=== PATIENT | male | born 1990 | race Caucasian/White ===

== ENCOUNTER 2024-11-24 01:23 | Emergency (ER) | payer BC, SELFPAY ==
[2024-11-24 01:26] VITALS: BP 153/92
[2024-11-24 01:51] LABS: % Eosinophils 5.6 % (0-6); % Immature Granulocytes 0.2 % (0-0.5); % Monocytes 7.7 % (1.7-9.3); % Neutrophils 42.5 % (42.2-75.2); Absolute Basophils 0.1 10^3/uL (0-0.2); Absolute Eosinophils 0.3 10^3/uL (0-0.7); Absolute Lymphocytes 2.5 10^3/uL (1.2-3.4); Absolute Monocytes 0.5 10^3/uL (0.1-0.6); Absolute Neutrophils 2.5 10^3/uL (1.4-6.5); Hematocrit 40.7 % (39.0-52.0); Hemoglobin 14.6 g/dL (13.0-18.0); Mean Corp Hgb Conc. 35.9 g/dL (33.0-37.0); Mean Corpuscular Hgb 31.1 pg (27.0-31.0); Mean Corpuscular Volume 86.8 fL (80.0-94.0); Nucleated Red Blood Cells % 0 % (-); Platelet Count 150 10^3/uL (130-400); Red Blood Cell Count 4.69 10^6/uL (4.70-6.10); Red Cell Dist. Width 12.4 % (11.5-14.5); White Blood Cell Count 5.9 10^3/uL (4.8-10.8)
[2024-11-24 01:58] LABS: ALT (SGPT) 20 U/L (0-50); AST (SGOT) 20 U/L (17-59); Albumin 4.5 g/dl (3.5-5.0); Alkaline Phosphatase 76 U/L (38-126); Blood Urea Nitrogen 9 mg/dl (9-20); Calcium 9.3 mg/dl (8.4-10.2); Carbon Dioxide 26 mmol/L (22-30); Chloride 110 mmol/L (98-107); Glucose 124 mg/dl (70-99); Sodium 143 mmol/L (135-145); Total Bilirubin 0.4 mg/dl (0.2-1.3); Total Protein 6.8 g/dl (6.3-8.2); eGFR > 60.00
[2024-11-24 02:10] LABS: Troponin I < 0.012 ng/ml
[2024-11-24 02:44] VITALS: BP 136/87; BMI 31.8
[2024-11-24 05:29] LABS: Troponin I 0.015 ng/ml
[2024-11-24 05:45] VITALS: BP 124/68
--- NOTE | 2024-11-24 06:10 | ED.GENMED ---
History of Present Illness
General
Chief Complaint: Chest Problem
Source: patient and family (Mother)
Time Seen by Provider: 11/24/24 02:52
Nursing documentation reviewed up to this point in time: agreed with
History of Present Illness
History of Present Illness:
Note:
CHIEF COMPLAINT(S)
Intermittent chest discomfort.
HISTORY OF PRESENT ILLNESS
The patient is a 34-year-old male who presented with concerns of chest discomfort that began around 1 AM. He reports feeling a 'funny sensation' in his chest, describing it as quick, intermittent, and lasting only a second or two each time. The
sensation occurred four to five times over a span of approximately 15 minutes. The patient expresses concern due to a family history of heart issues, specifically mentioning his father, who had a myocardial infarction at age 42 and at
54. He denies any associated symptoms such as sweating, fatigue, weakness, arm pain, or breathing difficulties. The patient describes the sensation as feeling like someone squeezing his chest slightly but notes no tightness or significant
discomfort. He has a history of epilepsy and reported undergoing hip surgery and wisdom teeth extraction, with no ongoing medical issues other than the aforementioned. He has been followed by a front man due to a family history of cardiomyopathy
and familial issues, having been seen most recently by Dr. Chan about two years ago.
PAST MEDICAL HISTORY
- Epilepsy
PAST SURGICAL HISTORY
- Hip surgery
- [place] teeth extraction
FAMILY HISTORY
- Father had myocardial infarction at age 42 and at 54 from heart disease.
PLAN
- Repeat cardiac enzyme test three hours from the initial blood draw.
- If test results are normal, discharge home with a recommendation to follow up with a front man.
DIFFERENTIAL DIAGNOSIS
The Differential Diagnosis includes, in no particular order and is not limited to:
- Atypical angina
- Gastroesophageal reflux disease (GERD)
- Costochondritis
- Anxiety or stress-related chest pain
- Myocardial infarction
- Pericarditis
- Myocarditis
- Musculoskeletal chest pain
- Esophageal spasm
- Pulmonary embolism
EKG
My independent EKG interpretation is:
- Rhythm: Normal-sized
- Heart Rate: 83 bpm
- Intervals: Normal
- [place]: Normal
- Abnormalities: No evidence of acute ischemia
- Comparison: QT interval has improved since the EKG dated September 03, 2021
HEART:
Result Summary
0 points Low Score (0-3 points)
Risk of MACE of 0.9-1.7%.
Inputs:
History -> 0 = Slightly suspicious
Age -> 0 = <45
Risk Factors -> 0 = No known risk factors
Initial Troponin -> 0 = <=ormal limit
EKG -> 0 = Normal
Disposition:
DIAGNOSIS
- R07.89 - Other chest pain
SUMMARY OF ENCOUNTER
The patient is a 35-year-old male who presented to the emergency department with concerns of chest discomfort that began earlier this evening. The patient described the chest discomfort as fleeting and reported experiencing palpitations. He denied
any shortness of breath, fever, chills, nausea, vomiting, or diaphoresis. The patient has a history of epilepsy. He was accompanied by his mother during the visit. Initial workup included cardiac enzyme tests, where the first troponin level was
negative, but the second troponin level showed a slight increase. The plan included repeating the troponin level for further assessment.
PLAN
- Repeat troponin level.
- Follow up with a front man.
INDEPENDENT INTERPRETATION OF TESTS
- My independent interpretation of the troponin test shows a slight elevation in the second sample compared to the first, indicating the need for further monitoring.
FOLLOW-UP INSTRUCTIONS
- The patient is advised to follow up with a front man for further evaluation and management of potential underlying cardiac issues.
MEDICAL DECISION MAKING
Number and Complexity of Problems Addressed: The patient presented with acute concerns regarding chest discomfort accompanied by palpitations, prompting an evaluation for cardiac issues given their increased complexity due to a slight elevation in
troponin.
Data: Diagnostic tests were initiated, and subsequent lab results, including troponin levels, required interpretation and follow-up.
Risk: The possibility of hospitalization was considered due to the slight elevation in troponin levels and family history of cardiac issues, underscoring the need for vigilant monitoring and follow-up care.
Past History
Past History
ED Past Medical History: None, Seizures and Other
ED Past Surgical History: None and Other
Social History
Tobacco: Non-smoker
Living: with family
Employment: Other
Family History
Family History: Other
Review of Systems
Review of Systems
Allergies reviewed?: Yes
All Other Systems: ROS reviewed and negative except as documented in HPI and ROS
Constitutional: Reports no symptoms
EENT: Reports no symptoms
Respiratory: Denies cough or trouble breathing
Cardiac: Reports chest pain and palpitations; Denies diaphoresis or syncope
ABD/GI: Reports no symptoms
: Reports no symptoms
Musculoskeletal: Reports no symptoms
Skin: Reports no symptoms
Neurological: Reports no symptoms
Endocrine: Reports no symptoms
Hematologic/Lymphatic: Reports no symptoms
Psychiatric: Reports no symptoms
Phy Exam
General Physical Exam
General Presentation: well appearing and no apparent distress
General Skin: warm and dry
General Habitus: normal
General Mental: alert
General Hydration: appears well hydrated
ENT Exam
ENT Exam: EOMI, pharynx normal, neck supple and normocephalic
Eye Exam
Eye Exam: PERRL, cornea clear and conjunctiva normal
Cardiovascular Exam
Cardiovascular Exam: regular rate/rhythm, no edema, no murmur and normal peripheral pulses
Pulmonary Exam
Pulmonary Exam: lungs clear, no respiratory distress, no rales, no crackles, no rhonchi, no stridor, no wheezing and no cough
Gastrointestinal Exam
Gastrointestinal Exam: normal bowel sounds, non tender, soft, no organomegaly, no pulsatile mass and non distended
Neurological Exam
Neurological Exam: alert, oriented x3, no motor deficits and speech normal
Musculoskeletal Exam
Musculoskeletal Exam: full ROM and no edema
Skin Exam
Skin Exam: normal color, warm/dry, no rash and no petechia
Psychiatric Exam
Psychiatric Exam: normal mood/affect
Course
Orders/Labs/Results
Orders:
Orders
11/24/24 01:26
Electrocardiogram (*1) Urgent
Reason for Study: Chest Pain
EKG- Treatment ONCE
11/24/24 01:36
Complete Blood Count/With Diff Urgent
Comprehensive Metabolic Panel Urgent
Troponin I Urgent
11/24/24 03:06
EKG- Treatment ONCE
11/24/24 04:30
EKG [Electrocardiogram (*1)] Urgent
Reason for Study: Chest Pain
11/24/24 04:49
Troponin I Urgent
11/24/24 07:01
Electrocardiogram (*1) Urgent
Reason for Study: Chest Pain
EKG- Treatment ONCE
11/24/24 07:30
Troponin I Urgent
Abnormal Lab Results
11/24/24
01:36
RBC 4.69 L 10^6/uL
(4.70-6.10)
MCH 31.1 H pg
(27.0-31.0)
MPV 12.0 H fL
(7.4-10.4)
Chloride 110 H mmol/L
(98-107)
Glucose 124 H mg/dl
(70-99)
11/24/24 01:36
11/24/24 01:36
Vital Signs
Initial and Last Documented VS:
Initial Vital Signs
Temp Pulse Resp BP Pulse Ox
98.2 F 89 18 153/92 100
11/24/24 01:26 11/24/24 01:26 11/24/24 01:26 11/24/24 01:26 11/24/24 01:26
Last Documented Vital Signs
Temp Pulse Resp BP Pulse Ox
98.2 F 80 14 124/68 100
11/24/24 01:26 11/24/24 05:45 11/24/24 05:45 11/24/24 05:45 11/24/24 05:45
*Pulse Oximetry
Patient hypoxic: no
Comment: 100 percent on room air
*EKG
Interpretation: normal
Comparison EKG: no comparison EKG present
Heart Rate: 80
Rate: normal
Rhythm: sinus
[place]: normal axis
Interval: normal interval
QRS Pattern: normal QRS
*Supervisor [place] Department Interpretation
Rate: normal
Interpretation: normal
Heart Rate: 67
Rhythm: sinus
*Critical Care Note
Total Time (30-74mins, 75-104mins- exclusive of procedures): Not Applicable
ED Attending Note
-
Portions of this chart may have been created with voice recognition software.� Occasional wrong word or��sound alike� substitutions may have occurred due to the inherent limitations of voice recognition software.
Discharge Plan
Departure
Condition: Fair
Instructions: Chest Pain DCA Follow Up
Prescriptions:
No Action
pregabalin [Lyrica] 300 MG capsule
300 mg PO QHS
Lamictal
400 mg PO BID
pregabalin [Lyrica] 200 mg Capsule
200 mg PO DAILY
Referrals:
Iván Rhodes MD [Family Provider, Internal Medicine]
Activity Restrictions/Additional Instructions:
Thank You for choosing [facility].
It was a pleasure meeting you and taking part in your care. We hope for your continued healing and wellness.
Please read discharge instructions in their entirety. However, they are for general education and may not describe your exact diagnosis at discharge. Information on your ER visit and medical conditions were discussed with you along with appropriate
follow up information...
If indicated, please take your medications as instructed and indicated on discharge paperwork.
Please schedule a follow up appointment as directed. Call to schedule an appointment
Please return to the emergency department with ANY change in, persisting, or worsening of symptoms. If any of your symptoms do not improve, or persist, or become more severe within 6-12 hours, please return to the emergency department for further
care.
Please return to the emergency department if you develop a headache, neck pain/stiffness, fever greater than 100.4F, chest pain, shortness of breath, persistent nausea, vomiting, slurred speech, difficulty walking, numbness/tingling, weakness, signs
of infection or any other symptoms that are worrisome to you.
If you have any questions or concerns please do not hesitate to call the Hospital at or E-mail me directly at [email or web address]
Interventions
Interventions:
*Risk Screen - Suicide Last Done: 11/24/24 01:26
*General Assessment Last Done: 11/24/24 01:26
*Neglect/Abuse Screening Last Done: 11/24/24 01:26
*ED- Fall Risk Assessment Last Done: 11/24/24 02:44
*ED COVID-19 Vaccine History Last Done: 11/24/24 02:44
ED- Cardiac Assessment Last Done: 11/24/24 02:44
ED- Pulmonary Assessment Last Done: 11/24/24 02:44
Discharge Date and Time
Print Language: GREEK
[2024-11-24 09:19] VITALS: BP 134/96
[2024-11-24 10:00] VITALS: BP 135/66
[2024-11-24 10:05] LABS: Troponin I < 0.012 ng/ml
== END 2024-11-24 10:29 | disposition home or self-care (01) ==
LOC: EMR 01:23
PROVIDERS: EMERGENCY PHYSICIAN Student in an Organized Health Care Education/Training Program; FAMILY PHYSICIAN Internal Medicine
DX: R07.89 Other chest pain (principal); R79.89 Other specified abnormal findings of blood chemistry; R00.2 Palpitations; Z82.49 Family history of ischemic heart disease and other diseases of the circulatory system
CPT/HCPCS: 99285; 71046; 80053; 84484; 85025; 93005